=== PATIENT | female | born 1985 | race Caucasian/White ===

== ENCOUNTER 2017-07-29 12:28 | Emergency (ER) | payer BC ==
[~2017-07-29] VITALS: Ht 162.6 cm; Wt 85.7 kg
[~2017-07-29 12:28] MED LIST: AUGMENTIN1 TA2 PO; LAC PO; MOT800 PO; MOTRIN800 MG
[2017-07-29 12:37] VITALS: Ht 162.6 cm; Wt 85.7 kg
[2017-07-29 14:14] VITALS: BP 108/50
== END 2017-07-29 14:14 | disposition home or self-care (01) ==
LOC: ED 12:28
DX: S29.011A Strain of muscle and tendon of front wall of thorax, initial encounter (principal); V49.9XXA Car occupant (driver) (passenger) injured in unspecified traffic accident, initial encounter; Y93.89 Activity, other specified; Y92.410 Unspecified street and highway as the place of occurrence of the external cause; Y99.8 Other external cause status
CPT/HCPCS: J1885